=== PATIENT | male | born 1985 | race Caucasian/White ===

== ENCOUNTER 2016-12-22 18:29 | Emergency (ER) | payer SELFPAY ==
[~2016-12-22] VITALS: Ht 160 cm; Wt 107.5 kg
[2016-12-22 18:48] VITALS: Ht 160 cm; Wt 107.5 kg
== END 2016-12-23 02:07 | disposition left against medical advice (07) ==
LOC: FTE 18:29
DX: Z53.21 Procedure and treatment not carried out due to patient leaving prior to being seen by health care provider (principal)